=== PATIENT | female | born 2005 | race Caucasian/White ===

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

== ENCOUNTER 2024-05-19 08:09 | Observation (INO) | payer BC, OTHER, SELFPAY ==
[2024-05-19] VITALS (16 sets, daily range): BP systolic 110–136; BP diastolic 24–84; PULSE 74–112; RESP 12–18; TEMP 36.7–37.2; O2SAT 96–100; BMI 24.7; BMI 24.5
--- NOTE | 2024-05-19 08:54 | ED.VIS.GI ---
HPI HPI - GI History of Present Illness Chief Complaint: Abd Pain Informant: patient and parent Narrative Narrative: 19-year-old female presenting to the emergency room with a chief complaint of abdominal pain. Patient states that around 1500 hrs. she developed a sharp stabbing pain just to the right lateral aspect of her umbilicus. It has been constant since. Nonradiating. No nausea vomiting diarrhea fevers or urinary symptoms. She notes a normal bowel movement yesterday. No bowel movement today. It is worse with standing and walking. Feels better with a heating pad. No prior abdominal surgeries. She has a history of anxiety notes no changes in her medication or dosing. She states that first it felt possibly a little bit lower in her abdomen and was more of a gassy sensation before becoming sharp and stabbing. Patient notes that she has had a prior episode of pancreatitis which was felt to be possibly due to a passed gallstone. No difficulties or symptoms of that since. [facility] Medical History Generalized anxiety disorder Anxiety Home Medications ?Medication ?Instructions ?Recorded ?Last Taken ?Type medroxyprogesterone 150 mg/mL 150 mg IM [id number] #1 mL 09/07/23 Unknown Rx intramuscular suspension (Depo-Provera) propranolol 10 mg tablet 10 mg PO TID PRN anxiety #90 tabs 02/24/24 Unknown Rx buspirone 10 mg tablet 10 mg PO BID #180 tabs 04/21/24 Unknown Rx sertraline 100 mg tablet 100 mg PO DAILY #30 tabs 04/21/24 Unknown Rx Allergy/AdvReac Type Severity Reaction Status Date / Time No Known Allergies Allergy Verified 05/19/24 08:10 Social History adopted: No household members: family current occupational status: student Smoking Status: Never smoker substance use type: does not use ROS ROS ED Constitutional Constitutional ED: Denies chills, fever(s) or weight loss Eyes Eyes: Denies change in vision or diplopia ENT ENT ED: Denies ear pain, rhinorrhea or sore throat Cardiovascular Cardiovascular: Denies chest pain, orthopnea, palpitations or racing heartbeat Respiratory/Chest Respiratory/Chest: Denies cough, dyspnea or orthopnea Gastrointestinal Gastrointestinal: Reports abdominal pain; Denies constipation, diarrhea, nausea or vomiting Genitourinary Genitourinary ED: Denies dysuria, hematuria or urinary frequency Musculoskeletal Musculoskeletal: Denies arthralgias, back pain or myalgias Integumentary Denies abscess or rash Neurologic Neurologic: Denies headache(s) or weakness Psychiatric Psychiatric: Denies anxiety, depression, suicidal ideation or suicidal thoughts Endocrine Endocrinology: Denies polydipsia, polyphagia or polyuria Allergic/Immunologic Allergic/Immunologic ED: Denies mouth swelling, tongue swelling or urticaria EXAM Physical Exam Const Vital Signs: 05/19/24 08:10 05/19/24 10:39 Temperature 98.0 F Temperature Source Oral Pulse Rate 112 H 100 Respiratory Rate 18 12 Blood Pressure 124/84 H 113/70 Blood Pressure Mean 97 84 Pulse Ox 100 97 Oxygen Delivery Method Room Air Room Air Positive well nourished and well developed General Appearance ED: well developed and NAD HEENT Reports normocephalic, head/scalp atraumatic and moist mucous membranes Eyes PERRL and EOMs intact bilaterally Neck no lymphadenopathy, supple and no JVD Resp normal respiratory effort and clear to auscultation bilaterally Cardio regular rate, regular rhythm and no murmurs GI GI Narrative: Patient noted be holding her abdomen as she walks Inspection: Negative for abdominal distention Auscultation: normoactive bowel sounds Palpation: soft and tender RLQ; Negative for guarding, mass or rebound tenderness present Back/Spine no CVA tenderness and normal ROM Extremity normal to inspection General Extremety ED: Negative for edema General Extremity: Negative for edema Neuro oriented x3 and CN's II-XII intact bilaterally Sensorium / Orientation: alert Motor Exam: strength 5/5 throughout Psych mental status grossly normal Mood & Affect: Negative for depressed or tearful Skin no rashes or lesions noted and no wounds MDM MDM MDM Narrative Medical decision making narrative: Differential diagnosis includes but not limited to acute appendicitis ovarian cyst epiploic appendagitis mesenteric adenitis colitis UTI ureterolithiasis White count at 8.4 77.3 neutrophils BMP within normal limits LFTs showed a bilirubin of 1.6 normal lipase. Patient was unable to provide urine specimen so test was eventually changed to a serum test which is negative. She received Zofran and Toradol. CT of the abdomen pelvis with IV contrast was obtained which demonstrates some periappendiceal inflammatory changes as well as an appendicolith with increased diameter of the appendix. Patient given a dose of Zosyn. I will speak with surgeon on-call. History & Record Review Discussion w/independent historian: Patient and Family Lab Data Attestation: I reviewed the patient's lab results. Labs: Laboratory Results - last 24 hr 05/19/24 08:50 WBC 8.4 RBC 4.94 Hgb 14.2 Hct 41.3 MCV 83.6 MCH 28.7 MCHC 34.4 RDW Std Deviation 35.6 RDW Coeff of Ashlie 11.8 Plt Count 170 MPV 9.1 Immature Gran % (Auto) 0.500 Neut % (Auto) 77.3 H Lymph % (Auto) 13.2 L [place] % (Auto) 8.1 Eos % (Auto) 0.5 Baso % (Auto) 0.4 Absolute Neuts (auto) 6.5 Absolute Lymphs (auto) 1.11 Nucleated RBC % 0 Sodium 140 Potassium 3.7 Chloride 109 H Carbon Dioxide 25.0 Anion Gap 6 BUN 11 Creatinine 0.79 Estim Creat Clear Calc 113.63 Est GFR (MDRD) Af Amer 119 Est GFR (MDRD) Non-Af 98 BUN/Creatinine Ratio 14.0 Glucose 109 H Calcium 9.3 Total Bilirubin 1.60 H Direct Bilirubin 0.30 AST 10 L ALT 30 Alkaline Phosphatase 80 Total Protein 7.2 Albumin 4.1 Globulin 3.1 Lipase 25 Serum , Qual NEGATIVE Radiography Diagnostic Testing: Clinical Impression(s) from Imaging Studies Abdomen/Pelvis CT 05/19/24 11:03 IMPRESSION: Acute appendicitis. Electronically Signed: Xiomara Pollard MD at 12:06 EDT , Management Discussion w/another healthcare provider: Mandarin Chinese Teacher (Dr. Damon) Discharge Plan Dx/Rx/DC Orders Clinical Impression: Abdominal pain, acute, Acute appendicitis Disposition Disposition: [facility]3] Care [facility]
[2024-05-19 08:58] LABS: Absolute Lymphocyte Count 1.11 X10^3/uL (0.83-4.51); Absolute Neutrophil Count 6.5 X10^3/uL (2.0-7.7); Basophil# 0.03 X10^3/uL; Basophil% 0.4 % (0-1); Eosinophil# 0.04 X10^3/uL; Eosinophils% 0.5 % (0-5); Hematocrit 41.3 % (37-47); Hemoglobin 14.2 g/dL (12.0-15.0); Lymphocyte # 1.11 X10^3/ul (0.83-4.51); Lymphocyte % 13.2 % (19-41); Mean Corp Hgb Conc 34.4 g/dL (32-36); Mean Corpuscular Hgb 28.7 pg (27.0-32.0); Mean Corpuscular Volume 83.6 fL (81-99); Mean Platelet Vol. 9.1 fl (6.2-12.0); Monocyte# 0.68 X10^3/uL; Monocyte% 8.1 % (0-10); NRBC Flagged by Analyzer 0 % (0-5); Neutrophil # 6.53 X10^3/uL (2.7-7.7); Neutrophil % 77.3 % (47-70); Platelet Count 170 K/mm3 (150-450); RBC Distribution Width CV 11.8 % (11.6-14.6); RBC Distribution Width SD 35.6 fl (35.1-43.9); Red Blood Count 4.94 M/mm3 (4.2-5.4); White Blood Count 8.4 K/mm3 (4.4-11.0)
--- NOTE | 2024-05-19 09:17 | ED.RN ---
PATIENTS MOTHER UPSET ABOUT WHAT THE PLAN OF CARE IS. RN INFORMED MOTHER THE PLAN IS TO OBTAIN BLOODWORK AND URINE SAMPLE AND GO FROM THERE. MOTHER STATES I HAVE NEVER BEEN TREATED LIKE THIS BEFORE. WHAT HAPPENS IF THE BLOODWORK IS NORMAL? YOU JUST SEND HER HOME? RN STATES THAT IS A POSSIBILITY. MOTHER STATES WE GO TO [place] AND ARE NEVER TREATED LIKE THIS. THIS IS RIDICULOUS. IF THAT IS THE PLAN THEN I WILL JUST TAKE HER NOW AND WE WILL LEAVE. DR. CRESPO NOTIFIED
[2024-05-19 09:26] LABS: AST(SGOT) 10 U/L (15-37); Alanine Aminotransfer ALT/SGPT 30 U/L (13-56); Albumin, Serum 4.1 g/dL (3.2-5.0); Alkaline Phosphatase 80 U/L (45-117); Anion Gap 6 (5-15); BUN 11 mg/dL (7-18); Calcium,Total 9.3 mg/dL (8.5-10.1); Chloride 109 mmol/L (98-107); Creatinine, Serum 0.79 mg/dL (0.55-1.02); EST Glomerular Filtration Rate 98 mL/min (>60); Est Glom Filt Rate - Afr Amer 119 mL/min (>60); Estimated Creatinine Clearance 113.63 ml/min; Globulin 3.1 g/dL (2.2-4.2); Glucose 109 mg/dL (74-106); Lipase 25 U/L (13-75); Potassium 3.7 mmol/L (3.5-5.1); Protein, Total 7.2 g/dL (6.4-8.2); Sodium Level 140 mmol/L (136-145)
--- NOTE | 2024-05-19 09:26 | ED.RN ---
RN SPOKE WITH DR. CRESPO ABOUT PLAN OF CARE. DR. CRESPO STATES I AM NOT JUST GOING TO ORDER A CAT SCAN UNTIL WE GET BLOODWORK BACK. THAT WILL GIVE US A BETTER IDEA OF WHAT FURTHER TESTING NEEDED- KIDNEY STONES, APPENDICITIS, GALLBLADDER OR PANCREAS WHICH SHE HAS A HISTORY OF MOTHER INFORMED OF WHAT DR. CRESPO RELAYED TO THIS RN. MOTHER STATES I WASN'T ASKING FOR A CAT SCAN. PATIENT IN THE BATHROOM ATTEMPTING TO COLLECT URINE SPECIMEN WHEN SHE CAME OUT, RN ATTEMPTED TO FOLLOW MOTHER AND PATIENT BACK INTO ROOM WHEN SHE WAVED ME AWAY AND CLOSED THE DOOR. COLE, CHARGE NURSE NOTIFIED
[2024-05-19] MEDS: Ondansetron 4 MG/2 ML Vial IV (10:01)
--- NOTE | 2024-05-19 11:03 | CT_ITS ---
STUDY: CT ABDOMEN AND PELVIS WITH CONTRAST - URINARY TRACT REASON FOR EXAM: Female, 19 years old. Abdominal pain RADIATION DOSAGE (If Supplied By Facility): CTDIvol = ( 16.61 ) mGy, DLP = ( 749.75 ) mGycm TECHNIQUE: IV 100mL Isovue-300 was administered. Transaxial images were obtained from the dome of the diaphragm to the symphysis pubis subsequent to intravenous contrast administration. Multiplanar coronal and sagittal images were reformatted. The protocol utilizes one or more of the following dose reduction techniques: automated exposure control, adjustment of mA and/or kV according to patient size,and/or use of iterative reconstruction technique. COMPARISON: No relevant prior comparison study available FINDINGS: The visualized lung bases are unremarkable. The visualized portions of the heart are within normal limits. Normal liver. Normal gallbladder and extrahepatic biliary system. Normal spleen. Normal pancreas. Normal bilateral adrenal glands. Normal visualized stomach. Normal small intestine. Normal colon. The appendix is dilated measuring up to 9.4 mm with periappendiceal stranding and circumferential wall thickening consistent with appendicitis. There is an appendicolith within the appendix. There is minimal free fluid within the pelvis. Normal abdominal aorta. No retroperitoneal adenopathy. Normal right kidney. Normal left kidney. Normal urinary bladder. Normal abdominal wall. Normal osseous structures. CT/Abdomen/Pelvis W IV Cont ONLY IMPRESSION: Acute appendicitis. Electronically Signed: Xiomara Pollard MD at 12:06 EDT ,
[2024-05-19] MEDS: Ketorolac 30 MG/ML Syringe IV (11:26)
[2024-05-19 11:40] LABS: Internal QC Validated? YES +Cl - CLEAR BKGD; Pregnancy, Serum, hCG Quali. NEGATIVE Negative
[2024-05-19] MEDS: Morphine 4 MG/ML Syringe IV (12:29)
[2024-05-19] MEDS: Piperacil/Tazobactam 4.5 GM in 0.9% Normal Saline (100mL MB+) 100 ML IV (12:30)
--- NOTE | 2024-05-19 13:48 | NURSING ---
SURGERY OBS ZO ACUTE APPENDICITIS
--- NOTE | 2024-05-19 14:38 | PCM.HP.STD ---
HPI - General General Date of Admission: 05/19/24 Date of Service: 05/19/24 Chief Complaint: Right lower quadrant abdominal pain HPI Narrative BREE BOO, is a 19 F who presents with a 1 day history of right lower quadrant abdominal pain. Patient notes at 1530 pm yesterday she had pain in her abdomen. She noted as the night went on the pain localized in the right lower quadrant. She notes by this morning the pain became worse. She denies the pain being associated with nausea, vomiting. She has not felt fever. She notes a lack of appetite over the last few days. She denies any change in bowel habits. She denies any allergies to medication. She denies any anesthesia complications. She denies any previous surgeries. 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 She notes as a child she had asthma which resolved by the age of 6. she notes previously having any episode of pancreatitis at the age of 15. She was told that possibly a gallstone made its way down the common bile duct causing the pancreatitis. She notes her last solid food was at 9:00pm and last drink was at [address] scan of the ab/pel demonstrated acute appendicitis with an appendicolith. WBC 8.4, Hgb 14.2, Hct 41.3, Plt 170. Neut. 77.3 PFSH Medical History Generalized anxiety disorder Anxiety Home Medications ?Medication ?Instructions ?Recorded ?Last Taken ?Type medroxyprogesterone 150 mg/mL 150 mg IM [id number] #1 mL 09/07/23 Unknown Rx intramuscular suspension (Depo-Provera) propranolol 10 mg tablet 10 mg PO TID PRN anxiety #90 tabs 02/24/24 Unknown Rx buspirone 10 mg tablet 10 mg PO BID #180 tabs 04/21/24 Unknown Rx sertraline 100 mg tablet 100 mg PO DAILY #30 tabs 04/21/24 Unknown Rx Allergy/AdvReac Type Severity Reaction Status Date / Time No Known Allergies Allergy Verified 05/19/24 08:10 Social History adopted: No household members: family current occupational status: student Smoking Status: Never smoker substance use type: does not use ROS Constitutional Constitutional: Reports systems reviewed and no addt'l complaints, except as documented Eyes Eyes: Reports systems reviewed and no addt'l complaints, except as documented ENT HEENT: Reports systems reviewed and no addt'l complaints, except as documented Cardiovascular Cardiovascular: Reports systems reviewed and no addt'l complaints, except as documented Respiratory/Chest Respiratory/Chest: Reports systems reviewed and no addt'l complaints, except as documented Gastrointestinal Gastrointestinal: Reports systems reviewed and no addt'l complaints, except as documented Genitourinary Genitourinary: Reports systems reviewed and no addt'l complaints, except as documented Musculoskeletal Musculoskeletal: Reports systems reviewed and no addt'l complaints, except as documented Integumentary Integumentary: Reports systems reviewed and no addt'l complaints, except as documented Neurologic Neurologic: Reports systems reviewed and no addt'l complaints, except as documented Psychiatric Psychiatric: Reports systems reviewed and no addt'l complaints, except as documented Endocrine Endocrinology: Reports systems reviewed and no addt'l complaints, except as documented Hematologic/Lymphatic Hematologic/Lymphatic: Reports systems reviewed and no addt'l complaints, except as documented Allergic/Immunologic Allergic/Immunologic: Reports systems reviewed and no addt'l complaints, except as documented Vital Signs Vital Signs Vital Signs: 05/19/24 08:10 05/19/24 10:39 05/19/24 12:00 Temperature 98.0 F Temperature Source Oral Pulse Rate 112 H 100 74 Respiratory Rate 18 12 16 Blood Pressure 124/84 H 113/70 112/77 Blood Pressure Mean 97 84 88 Pulse Ox 100 97 99 Oxygen Delivery Method Room Air Room Air Weight Weight: 162 lb 8 oz Body Mass Index (BMI) 24.7 Physical Exam Const alert, oriented x3 and no apparent distress HEENT normocephalic and head/scalp atraumatic Eyes PERRL Neck full ROM Resp normal respiratory effort and clear to auscultation bilaterally Cardio regular rate and regular rhythm GI GI Narrative: Abdomen- soft, tenderness in the right lower quadrant over McBurney's point. Hypoactive bowel sounds. no CVA tenderness Back/Spine no CVA tenderness Extremity normal to inspection Skin no rashes or lesions noted Neuro no focal motor deficits and no sensory deficits noted Psych mental status grossly normal, thought process normal and cooperative Results Lab / Micro Data 05/19/24 08:50 05/19/24 08:50 Labs: Laboratory Results - last 24 hr 05/19/24 08:50: WBC 8.4, RBC 4.94, Hgb 14.2, Hct 41.3, MCV 83.6, MCH 28.7, MCHC 34.4, RDW Std Deviation 35.6, RDW Coeff of Ashlie 11.8, Plt Count 170, MPV 9.1, Immature Gran % (Auto) 0.500, Neut % (Auto) 77.3 H, Lymph % (Auto) 13.2 L, [place] % (Auto) 8.1, Eos % (Auto) 0.5, Baso % (Auto) 0.4, Absolute Neuts (auto) 6.5, Absolute Lymphs (auto) 1.11, Nucleated RBC % 0, Sodium 140, Potassium 3.7, Chloride 109 H, Carbon Dioxide 25.0, Anion Gap 6, BUN 11, Creatinine 0.79, Estim Creat Clear Calc 113.63, Est GFR (MDRD) Af Amer 119, Est GFR (MDRD) Non-Af 98, BUN/Creatinine Ratio 14.0, Glucose 109 H, Calcium 9.3, Total Bilirubin 1.60 H, Direct Bilirubin 0.30, AST 10 L, ALT 30, Alkaline Phosphatase 80, Total Protein 7.2, Albumin 4.1, Globulin 3.1, Lipase 25, Serum , Qual NEGATIVE Imaging Radiology Impression Abdomen/Pelvis CT 05/19/24 11:03 IMPRESSION: Acute appendicitis. Electronically Signed: Xiomara Pollard MD at 12:06 EDT , Assessment & Plan Assessment/Plan (1) Acute appendicitis: QUALIFIERS: Acute appendicitis type: with localized peritonitis Appendicitis gangrene presence: without gangrene Appendicitis perforation presence: without perforation Appendicitis abscess presence: without abscess Qualified Code(s): K35.30 - Acute appendicitis with localized peritonitis, without perforation or gangrene PLAN: I am seeing this patient in conjunction with Dr. Damon. He has also evaluated this patient. Patient with a 1 day history of right lower quadrant pain associated with lack of appetite. CT scan of the ab/pel confirmed acute appendicitis with an appendicolith. Dr. Damon will plan to perform a laparoscopic appendectomy. Procedure benefits, risks and details were explained to the patient and her mother. Patient has had the opportunity to ask and have questions answered. Patient verbally understands agrees with the proposed procedure. It was discussed with the patient that admission for observation post-operatively may occur for IV fluids and pain control. She was agreeable. Thank you for allowing us to participate in this patient's care. Charges/Coding Visit Charges OBSV E&M: [id number] Observ/hosp same date L2
[2024-05-19] MEDS: Lactated Ringers 1,000 ML 15 ML IV (16:03)
--- NOTE | 2024-05-19 17:08 | PCM.PRE.AN2 ---
ASA Classification* ASA Classification ASA Classification: 2 and E Assessment & Plan Anesthesia* Anesthesia Assessment Anesthesia Assessment: Discussed sedation and/or anesthesia options, risks, benefits, and alternatives with patient/parents/legal guardian/POA. Questions invited. The patient/parents/legal guardian/POA seems to understand and agrees to proceed with anesthesia plan. Reviewed the physical assessment, medical history, allergy history and patient home medications list prior to surgery/procedure/anesthetic and documented any changes. Performed airway and anesthesia risk assessments. Anesthesia Type Anesthesia Type: General Anesthesia Focused Assessment* Temperature: 98.1 F Pulse Rate: 95 Blood Pressure: 110/74 Respiratory Rate: 16 Pulse Ox: 98 Airway Assessment Mouth opens: >3 cm Mallampati Score: II Focused Labs Anesthesia Preop lab: CBC WBC 8.4 K/mm3 (4.4-11.0) 05/19/24 08:50 RBC 4.94 M/mm3 (4.2-5.4) 05/19/24 08:50 Hgb 14.2 g/dL (12.0-15.0) 05/19/24 08:50 Hct 41.3 % (37-47) 05/19/24 08:50 Plt Count 170 K/mm3 (150-450) 05/19/24 08:50 CHEMISTRY Potassium 3.7 mmol/L (3.5-5.1) 05/19/24 08:50 Sodium 140 mmol/L (136-145) 05/19/24 08:50 BUN 11 mg/dL (7-18) 05/19/24 08:50 Creatinine 0.79 mg/dL (0.55-1.02) 05/19/24 08:50 Glucose 109 mg/dL (74-106) H 05/19/24 08:50 COAG Tst Clinic Negative 10/08/22 12:34 Pre-Assessment Diagnosis/Proposed Procedure Planned Operative Procedure(s): LAPROSCOPIC APPENDECTOMY Anesthesia History Anesthesia History - it program engagement director: Anesthesia History - it program engagement director Hx Hospitalization Any Problems With Anesthesia Cholinesterase deficiency You/Your Family Experience fever (hyperthermia) with Relationship Recent Exposure to Contagious Disease Does patient have nerve No 05/19/24 15:34 stimulator Patient instructed to have device shut off --Does patient have Pacemaker or ICD? When Was Last Pacemaker Check QUESTION #4 FULL TEXT: You/Your Family Experience fever (hyperthermia) with Anesthesia Last Oral Intake Last Oral intake: Last Oral Intake NPO since 20:00 05/19/24 15:34 Meds taken in AM with sips of water? Meds patient instructed to take am of surgery PONV PONV - it program engagement director: PONV - it program engagement director Female HX of Motion Sickness HX of N/V After Surgery Non-Smoker Duration of Surgery greater than 60 minutes Number of Risk Factors PONV Score Height & Weight Height & Weight: Anesthesia: Height & Weight Height 5 ft 8 in 05/19/24 15:34 Weight: 73.709 kg 05/19/24 15:34 Body Mass Index (BMI) 24.7 05/19/24 15:34 Respiratory Assessment Respiratory Assessment - it program engagement director: Respiratory Tract Infection Hx - it program engagement director Hx Respiratory Tract Infection STOP Sleep Apnea STOP Sleep Apnea - it program engagement director: STOP Sleep Apnea - it program engagement director Hx Hypertension No 05/19/24 15:34 Hx Sleep Apnea No 05/19/24 15:34 CPAP BIPAP Do you snore loudly (louder No 05/19/24 15:34 than talking or can be heard Do you often feel tired/ No 05/19/24 15:34 fatigued/ sleepy during daytime? Has anyone observed you stop No 05/19/24 15:34 breathing during sleep? STOP Results Negative 05/19/24 15:34 QUESTION #5 FULL TEXT : Do you snore loudly (louder than talking or can be heard through closed doors)? Tobacco Use History Tobacco Use History - it program engagement director: Tobacco Use History - it program engagement director Tobacco Use Smoking Status Never smoker 05/19/24 08:58 Hx Tobacco Use No 06/17/23 11:03 Years Smoking Packs Smoked per Day Smoking Cessation Date was within the last 15 years Hx Smoking Cessation Date Hx Smoking Cessation Counseling Hematologic Medial History Hematologic Hx - it program engagement director: Hematologic Medical Hx - np Hx of Blood Transfusion Hx of Transfusion in last 3 Months Date of Last Transfusion (if within last 3 months) Ever experience any problems with transfusion(s)? Specify any problems Hx of Preganancy in last 3 Months Nurse Filling Out Transfusion & Questions: Date: Time: Patient unable to answer at this time (ie. confused, unrespo /Reproduction History /Reproductive History - it program engagement director: /Reproductive Hx- it program engagement director Hx Now No 05/19/24 15:34 Gestational Age (in weeks): EDC: Hx Hx Para Hx Section SAB No 05/19/24 15:34 Active Medications Active Medications: Current Medications Generic Name Dose Route Start Last Admin Trade Name Freq PRN Reason Stop Dose Admin Lactated Ringer's 1,000 mls @ 15 mls/hr 05/19/24 16:00 05/19/24 16:03 IV 05/25/24 05:19 15 mls/hr .Q48H CHAS Administration Protocol Morphine Sulfate 4 mg 05/19/24 12:16 05/19/24 12:29 Morphine 4 Mg/Ml Syringe IV 4 mg X1 PRN Administration PAIN 1-10 PFSH Medical History Generalized anxiety disorder Anxiety Home Medications ?Medication ?Instructions ?Recorded ?Last Taken ?Type medroxyprogesterone 150 mg/mL 150 mg IM [id number] #1 mL 09/07/23 Unknown Rx intramuscular suspension (Depo-Provera) propranolol 10 mg tablet 10 mg PO TID PRN anxiety #90 tabs 02/24/24 Unknown Rx buspirone 10 mg tablet 10 mg PO BID #180 tabs 04/21/24 Unknown Rx sertraline 100 mg tablet 100 mg PO DAILY #30 tabs 04/21/24 Unknown Rx Allergy/AdvReac Type Severity Reaction Status Date / Time No Known Allergies Allergy Verified 05/19/24 08:10 Social History adopted: No household members: family current occupational status: student Smoking Status: Never smoker substance use type: does not use Review of Systems (Anesthesia) ROS Narrative System reviewed and no additional complaints, except as documented.
[2024-05-19] MEDS: Bupiv/Epi 0.25% 30 ML Vial (18:03)
--- NOTE | 2024-05-19 18:53 | OP.PCM_ITS ---
Operative Report (Standard) Operative Information Surgery/Procedure Performed: Laparoscopic appendectomy Surgeon: Charli Damon Date of Procedure: 05/19/24 Procedure Start Time: 18:03 Procedure Stop Time: 18:52 Pre-Operative Diagnosis: Acute uncomplicated appendicitis secondary to appendicolith Post-Operative Diagnosis: Same Select all DRAINS/GRAFTS/IMPLANTS that apply: None Type of Anesthesia: General/Supplemental Estimated Blood Loss: 10 Specimen collected: Yes Description of specimen(s) removed: Appendix Description of surgery: After appropriate identification in the preoperative holding area, the patient was brought to the operating room and placed supine on the operating room table. Antibiotics had been preoperatively administered. Patient was then induced with general endotracheal anesthetic. The abdomen was prepped and draped in usual sterile fashion. Formal timeout was conducted to confirm both the patient and the procedure. A supraumbilical incision was made and carried down to the level of the fascia which was sharply opened. After opening the peritoneum in like fashion a finger sweep was made to confirm position, and a balloon trocar was placed and pneumoperitoneum was established to 15 mmHg. Patient was positio estuardo in Trendelenburg with the left side down. 2 additional 5 mm trocars were placed in the left lower quadrant and suprapubic positions. The peritoneum was inspected and there were no signs of inadvertent injury from this Cabrera entry. The appendix was visualized with mild to moderate inflammation and it was doubled back upon itself by adhesions between its mesoappendix. Using blunt laparoscopic dissection, a window was made in the mesoappendix adjacent to the appendiceal base. After clearly identifying the course of the terminal ileum and the cecum, the mesoappendix was divided with application of a laparoscopic harmonic. Then the base of the appendix was sealed and amputated with the use of an Endo DIMITRI stapler. The appendix was placed in an Endo Catch bag. The staple line was inspected for hemostasis but some oozing was detected so a Ray- Levon gauze was placed into the peritoneal cavity and direct pressure was applied. After hemostasis was confirmed the appendix was removed from the umbilical port site. Pneumoperitoneum was then evacuated and the supraumbilical port site fascia was closed with #1 Vicryl in a [id number]-on-aasnf fashion. The port sites were infiltrated with 20 mL local anesthetic. The skin of each port site was closed with 4-0 Monocryl in a subcuticular fashion. Steri-Strips and OpSite dressings were applied. Patient tolerated procedure well without any apparent complications. They were awoken from general anesthetic without issue and transferred to post anesthesia care unit for ongoing recovery. Surgical Findings: ? Inflamed appendix along the distal third with a grossly normal base. No signs of perforation ? Grossly normal anatomy otherwise Roofer Applicator shearing machine feeder: No Complications Complications: No Admit VTE Documentation VTE Mechan Device Prophylaxis: SCD's Procedures Digestive [id number]-49xxx: [id number] Laparoscopy appendectomy
--- NOTE | 2024-05-19 19:04 | PCM.POST.ANE ---
Anesthesia: Postop Eval I Current Vital Signs Temperature: 99 F Pulse Rate: 107 Blood Pressure: 126/60 Respiratory Rate: 16 Pulse Ox: 100 Assessment Airway patent: Yes Spontaneous unlabored respirations: Yes nausea: No Vomiting: No Anesthesia Complication: No Fluid Hydration Crystalloid volume administer (ml): 1,000 Total IV fluid infused: 1,000 Progress Note Anesthesia document: Postop Eval 1 completed: Yes
--- NOTE | 2024-05-19 19:06 | PCM.POSTANE2 ---
Anesthesia Postop Eval I Sum Postop Eval Completion status Anesthesia document: Postop Eval 1 completed: Yes Anesthesia Postop Eval I Summary Anesthesia Postop Eval I Summary: Anesthesia Postop Eval I: Assessment Summary Airway patent Yes 05/19/24 19:04 Spontaneous unlabored Yes 05/19/24 19:04 respirations Mental status nausea No 05/19/24 19:04 Vomiting No 05/19/24 19:04 Anesthesia Postop Eval I: Fluid Summary Crystalloid volume administer 1,000 05/19/24 19:04 (ml) Colloids volume administered ( ml) Blood Product volume administered (ml) Total IV fluid infused 1,000 05/19/24 19:04 Anesthesia Postop Eval I: Summary Notes Anesthesia Complication No 05/19/24 19:04 Anesthesia Complication Comment: Post-operative progress note Anesthesia: Postop Eval II Evaluation Mental status: Awake Pain Level: 0 nausea: No Vomiting: No Complications Anesthesia Complication: No
[2024-05-19] MEDS: 0.9% Normal Saline (1000mL) 1,000 ML 100 ML IV (20:12)
[2024-05-19] MEDS: Acetaminophen 325 MG Tablet 650 MG PO (20:41)
[2024-05-19] MEDS: oxyCODONE 5 MG Tablet PO (22:07)
--- NOTE | 2024-05-20 | APP_PTH ---
PATIENT: BREE BOO LOC: [facility] U#:[id number] AGE/SX: ROOM: ND322 RE05/19/[address]: Dr. Charli Damon MD : 2005 BED: 1 DIS: 05/20/2024 SPEC #: [id number] RECD: 05/20/24 12:47 STATUS: JYOTI RECk #: [id number] ROSITA: 05/20/24 00:[address]: Charli Damon DEPT: SURGICAL PATHOLOGY RECD BY: Delfino Bay ENTERED: 05/20/24 12:47 SP TYPE: APPENDIX OTHR DR: No Primary Care Phys Tissues: Appendix, NOS Procedures: Surgery Specimen Level III HEADER OPERATION: Laparoscopic appendectomy PRE-OP DIAGNOSIS: Acute appendicits TISSUE SUBMITTED: Appendix MICROSCOPIC DIAGNOSIS Appendix, appendectomy: Acute appendicitis and periappendicitis. 05/23/2024 MICROSCOPIC DESCRIPTION Slides are reviewed. GROSS DESCRIPTION Received in fixative is one container labeled with the patient's name and designated appendix. The specimen consists of a J shaped appendix measuring 8.0 cm in length and up to 1.0 cm in diameter. The attached periappendiceal adipose tissue measures up to 1.0 cm in width. The serosa is congested. No obvious perforation is identified. The lumen contains purulent material. No fecalith is identified. Conservation Engineer sections are submitted in one cassette. / SJ:mr 05/20/2024 TC:2 CPT: 90557
[2024-05-20 02:24] VITALS: BP 113/54; PULSE 70; RESP 15; TEMP 36.8; O2SAT 98
[2024-05-20 06:07] VITALS: BP 116/73; PULSE 79; RESP 15; TEMP 36.6; O2SAT 100
[2024-05-20] MEDS: Acetaminophen 325 MG Tablet 650 MG PO (06:14)
[2024-05-20 06:32] LABS: Anion Gap 7 (5-15); BUN 9 mg/dL (7-18); BUN/Creat Ratio 13.1 RATIO (10-20); Calcium,Total 8.6 mg/dL (8.5-10.1); Chloride 112 mmol/L (98-107); Creatinine, Serum 0.69 mg/dL (0.55-1.02); EST Glomerular Filtration Rate 114 mL/min (>60); Est Glom Filt Rate - Afr Amer 138 mL/min (>60); Glucose 106 mg/dL (74-106); Potassium 3.8 mmol/L (3.5-5.1); Sodium Level 139 mmol/L (136-145)
[2024-05-20 06:41] LABS: Absolute Lymphocyte Count 0.92 X10^3/uL (0.83-4.51); Absolute Neutrophil Count 7.4 X10^3/uL (2.0-7.7); Basophil# 0.01 X10^3/uL; Basophil% 0.1 % (0-1); Hematocrit 38.8 % (37-47); Hemoglobin 12.8 g/dL (12.0-15.0); Lymphocyte # 0.92 X10^3/ul (0.83-4.51); Lymphocyte % 10.3 % (19-41); Mean Corpuscular Hgb 28.2 pg (27.0-32.0); Mean Corpuscular Volume 85.5 fL (81-99); Mean Platelet Vol. 9.6 fl (6.2-12.0); Monocyte# 0.52 X10^3/uL; Monocyte% 5.8 % (0-10); NRBC Flagged by Analyzer 0 % (0-5); Neutrophil # 7.44 X10^3/uL (2.7-7.7); Neutrophil % 83.2 % (47-70); Platelet Count 200 K/mm3 (150-450); RBC Distribution Width CV 11.8 % (11.6-14.6); RBC Distribution Width SD 36.5 fl (35.1-43.9); Red Blood Count 4.54 M/mm3 (4.2-5.4); White Blood Count 8.9 K/mm3 (4.4-11.0)
[2024-05-20 08:30] VITALS: BP 115/74; PULSE 77; RESP 16; TEMP 36.5; O2SAT 100
--- NOTE | 2024-05-20 09:01 | PCM.DC ---
Discharge Instructions Diet Discharge Diet: No restrictions Activity Discharge Activity: May Not Drive (No driving while using narcotic pain medication) and May Shower (Postoperative day 1) May shower in (days): 1 Ice area for (Minutes): 20 Lifting Restrictions: No lifting greater than 15 pounds for 2 weeks after surgery Dressing / Incision Call your doctor if your incision/area has: Continuous Slow Oozing, Increased Pain/ Swelling, Increased Redness, Foul Smelling Discharge and Swelling at the incision site Call your doctor if you observe: Fever of 101 or Higher Remove Dressing in: 1 day (Please leave Steri-Strips intact until they fall off spontaneously or are taken off at your follow-up visit) Cleanse incision/area with: Soap & Water Follow Up Care Please Follow Up With: Charli Damon MD When: 10-14 days postop Test Results: Test results from this visit will be discussed in further detail at your follow-up appointment, if applicable. Discharge Plan Admission Admit Date/Time: 05/19/24 13:38 Primary Reason for Your Visit: Acute appendicitis Attending Provider: Charli Damon Primary Care Provider: Care PhysicianHeide Primary Discharge Orders/Prescriptions Prescriptions: New oxycodone 5 mg Tablet 5 mg PO Q6H PRN PRN (Reason: Pain Score 6-10) 3 Days Qty: 10 0RF Continued propranolol 10 mg tablet 10 mg PO TID PRN (Reason: anxiety) Qty: 90 1RF sertraline 100 mg tablet 100 mg PO DAILY Qty: 30 1RF buspirone 10 mg tablet 10 mg PO BID Qty: 180 1RF medroxyprogesterone [Depo-Provera] 150 mg/mL suspension 150 mg IM [id number] Qty: 1 3RF Referrals / Follow Up: Care PhysicianHeide Primary [Primary Care Provider] - Disposition Disposition (needs filled in before D/C Order can be placed): Home, Self Care
--- NOTE | 2024-05-20 09:07 | DS.PCM_ITS ---
Providers Date of Admission: 05/19/24 Primary Care Physician: Heide Primary Care Phys Reason For Visit: ACUTE APPENDICITIS Diagnosis Discharge Diagnosis (1) Acute appendicitis: Status: Acute Code(s): K35.80 - Unspecified acute appendicitis Qualifiers: Acute appendicitis type: with localized peritonitis Appendicitis abscess presence: without abscess Appendicitis gangrene presence: without gangrene Appendicitis perforation presence: without perforation Qualified Code(s): K35.30 - Acute appendicitis with localized peritonitis, without perforation or gangrene Plan: I am seeing this patient in conjunction with Dr. Damon. He has also evaluated this patient. Patient with a 1 day history of right lower quadrant pain associated with lack of appetite. CT scan of the ab/pel confirmed acute appendicitis with an appendicolith. Dr. Damon will plan to perform a laparoscopic appendectomy. Procedure benefits, risks and details were explained to the patient and her mother. Patient has had the opportunity to ask and have questions answered. Patient verbally understands agrees with the proposed procedure. It was discussed with the patient that admission for observation post-operatively may occur for IV fluids and pain control. She was agreeable. Thank you for allowing us to participate in this patient's care. Medications at Discharge Home Medications medroxyprogesterone 150 mg/mL intramuscular suspension (Depo-Provera) 150 mg IM [id number] #1 mL 09/07/23 propranolol 10 mg tablet 10 mg PO TID PRN anxiety #90 tabs 02/24/24 buspirone 10 mg tablet 10 mg PO BID #180 tabs 04/21/24 sertraline 100 mg tablet 100 mg PO DAILY #30 tabs 04/21/24 oxycodone 5 mg tablet 5 mg PO Q6H PRN PRN Pain Score 6-10 3 days #10 tabs 05/20/24 Hospital Course Operations appendectomy (05/19/2024) Procedures None Summary of Care Provided Hospital Course: Patient 19-year-old female presented to [facility] ER 05/19/2024 with complaints of acute onset abdominal pain and anorexia. Ensuing ER workup was consistent with a diagnosis of appendicitis as clearly demonstrated with an associated appendicolith on CT imaging. After evaluation and clinical exam confirmed this diagnosis laparoscopic appendectomy was recommended and emergency medicine administered IV antibiotics. Patient and her family were receptive of this recommendation and she was taken for an uncomplicated laparoscopic appendectomy the evening of 05/19/2024. However, postoperatively [facility] given the late hour at the conclusion of the surgery. She was provided a clear liquid diet immediately following her operation which she tolerated well. Upon reevaluation the morning of postoperative day 1 she complained of some hunger and was thus advanced to a regular diet which she also tolerated well. After confirming reassuring vitals, labs, and reviewing postoperative care instructions she was granted discharge to home with expectation for outpatient follow-up. Physical Exam Const alert, oriented x3 and no apparent distress General Appearance: cooperative, comfortable and well developed Resp normal respiratory effort GI GI Narrative: Operative dressings intact, nondistended, soft, minimally tender to palpation Weight / BMI Weight Weight: 160 lb 14.999 oz Body Mass Index (BMI) 24.5 ABG / Lab / Microbiology Data 05/20/24 05:50 05/20/24 05:50 Laboratory: Laboratory Results - last 24 hr 05/19/24 08:50: Sodium 140, Potassium 3.7, Chloride 109 H, Carbon Dioxide 25.0, Anion Gap 6, BUN 11, Creatinine 0.79, Estim Creat Clear Calc 113.63, Est GFR (MDRD) Af Amer 119, Est GFR (MDRD) Non-Af 98, BUN/Creatinine Ratio 14.0, Glucose 109 H, Calcium 9.3, Total Bilirubin 1.60 H, Direct Bilirubin 0.30, AST 10 L, ALT 30, Alkaline Phosphatase 80, Total Protein 7.2, Albumin 4.1, Globulin 3.1, Lipase 25, Serum , Qual NEGATIVE 05/20/24 05:50: WBC 8.9, RBC 4.54, Hgb 12.8, Hct 38.8, MCV 85.5, MCH 28.2, MCHC 33.0, RDW Std Deviation 36.5, RDW Coeff of Ashlie 11.8, Plt Count 200, MPV 9.6, Immature Gran % (Auto) 0.600, Neut % (Auto) 83.2 H, Lymph % (Auto) 10.3 L, [place] % (Auto) 5.8, Eos % (Auto) 0.0, Baso % (Auto) 0.1, Absolute Neuts (auto) 7.4, Absolute Lymphs (auto) 0.92, Nucleated RBC % 0, Sodium 139, Potassium 3.8, C hloride 112 H, Carbon Dioxide 20.0 L, Anion Gap 7, BUN 9, Creatinine 0.69, Estim Creat Clear Calc 130.10, Est GFR (MDRD) Af Amer 138, Est GFR (MDRD) Non-Af 114, BUN/Creatinine Ratio 13.1, Glucose 106, Calcium 8.6 Radiography Diagnostic Testing: Radiology Impression Abdomen/Pelvis CT 05/19/24 11:03 IMPRESSION: Acute appendicitis. Electronically Signed: Xiomara Pollard MD at 12:06 EDT , D/C Instructions Discharge Diet: No restrictions May shower in (days): 1 Ice area for (Minutes): 20 Call your doctor if your incision/area has: Continuous Slow Oozing, Increased Pain/ Swelling, Increased Redness, Foul Smelling Discharge and Swelling at the incision site Call your doctor if you observe: Fever of 101 or Higher Cleanse incision/area with: Soap & Water Please Follow Up With: Charli Damon MD When: 10-14 days postop Meaningful Use Info Meaningful Use Meaningful Use Diagnoses (Choose all that apply): None applicable Ischemic Stroke Statin Dosing Therapy Reference: STATIN DOSE THERAPY REFERENCE: * Patients > 75 years receive moderate or high dose statin therapy. * Patients 75 years or YOUNGER should receive HIGH intensity statin dose unless contraindicated. You will be required to document reason for non-treatment if statin daily dose does not meet guidelines. HIGH DOSE STATIN THERAPY DAILY Atorvastatin > than or = to 40 mg Rosuvastatin > than or = to 20 mg Amlodipine + Atorvastatin > than or = to 2.5/40 mg Ezetimibe + Simvastatin 10/80 mg Simvastatin 80mg Discharge Plan Admission Admit Date/Time: 05/19/24 13:38 Primary Reason for Your Visit: Acute appendicitis Attending Provider: Charli Damon Primary Care Provider: Care Physician,No Primary Discharge Orders/Prescriptions Prescriptions: New oxycodone 5 mg Tablet 5 mg PO Q6H PRN PRN (Reason: Pain Score 6-10) 3 Days Qty: 10 0RF Continued propranolol 10 mg tablet 10 mg PO TID PRN (Reason: anxiety) Qty: 90 1RF sertraline 100 mg tablet 100 mg PO DAILY Qty: 30 1RF buspirone 10 mg tablet 10 mg PO BID Qty: 180 1RF medroxyprogesterone [Depo-Provera] 150 mg/mL suspension 150 mg IM [id number] Qty: 1 3RF Referrals / Follow Up: Care Physician,No Primary [Primary Care Provider] - Disposition Disposition (needs filled in before D/C Order can be placed): Home, Self Care Charges/Coding Visit Charges Inpatient E&M: 87885 Disch Hosp
[2024-05-20 11:15] VITALS: BP 110/61; PULSE 93; RESP 16; TEMP 36.9; O2SAT 99
== END 2024-05-20 11:28 | disposition home or self-care (01) ==
LOC: ED 13:27 → SDC 13:28 → AC 13:28 → SDC 17:40 → MS3 17:40
PROVIDERS: Physician Assistant; Admitting Provider Surgery; Emergency Provider Emergency Medicine; Visit Provider Surgery
PROC: 0DTJ4ZZ Resection of Appendix, Percutaneous Endoscopic Approach (ICD-10-PCS; CPT 44970; principal; 2024-05-19 17:10)
DX: K35.30 Acute appendicitis with localized peritonitis, without perforation or gangrene (principal); F41.1 Generalized anxiety disorder; Z79.899 Other long term (current) drug therapy; E74.31 Sucrase-isomaltase deficiency
CPT/HCPCS: 44970; 00840; 36415; 74177; 80048; 80076; 83690; 84703; 85025; 88304; 94668; 96361; 96365; 96366; 96375; 99221; 99284; J7030; J7040; J7120; Q9967; A4216; G0378; J2405